=== PATIENT | male | born 1980 | race Caucasian/White ===

== ENCOUNTER 2016-08-13 12:24 | Emergency (ER) | payer OTHER ==
[~2016-08-13] VITALS: Ht 177.8 cm; Wt 72.6 kg
[~2016-08-13 12:24] MED LIST: BACTRIM DS TAB1 EACH PO; KEFLEX500 MG PO; LAMICTAL200 MG PO
[2016-08-13 14:14] VITALS: BP 132/86
== END 2016-08-13 14:15 | disposition home or self-care (01) ==
LOC: ER 12:24
DX: S51.812A Laceration without foreign body of left forearm, initial encounter (principal); X58.XXXA Exposure to other specified factors, initial encounter; Y93.89 Activity, other specified; Y92.89 Other specified places as the place of occurrence of the external cause; Y99.8 Other external cause status

== ENCOUNTER 2020-12-11 16:41 | Emergency (ER) | payer OTHER ==
[~2020-12-11] VITALS: Ht 177.8 cm; Wt 81.7 kg
[2020-12-11] MEDS ORDERED: NAPROSYN500 MG PO (17:22)
[2020-12-11 18:15] VITALS: BP 150/92
== END 2020-12-11 18:30 | disposition home or self-care (01) ==
LOC: ER 16:41
DX: S83.91XA Sprain of unspecified site of right knee, initial encounter (principal); W17.89XA Other fall from one level to another, initial encounter; Y93.44 Activity, trampolining; Y92.89 Other specified places as the place of occurrence of the external cause; Y99.8 Other external cause status